=== PATIENT | female | born 1960 | race Caucasian/White ===

== ENCOUNTER 2018-01-24 08:35 | Inpatient (IN) | payer BC ==
[2018-01-24] MEDS ORDERED: Sodium Chloride 0.9% 2.5 ML Syringe FLUSH PRN (08:59)
[2018-01-24] MEDS ORDERED: Sodium Chloride 0.9% 10 ML Syringe FLUSH PRN (08:59)
--- NOTE | 2018-01-24 09:06 | EDM.PDOC ---
ED HPI GENERAL MEDICAL PROBLEM - General Chief Complaint: Neuro Symptoms/Deficits Stated Complaint: LT SIDE OF FACE IS NUMB Time Seen by Provider: 01/24/18 08:50 - History of Present Illness INITIAL COMMENTS - FREE TEXT/NARRATIVE: HISTORY AND PHYSICAL: History of present illness: Patient 57-year-old female with no significant past medical history presents with a concern of paresthesias in her left face primarily in the supraorbital forehead region she states she is a little bit on her frontal and parietal scalp she's here today because it seems a slightly worse than it did earlier in the week is been no motor symptoms no blurry vision no trauma no chest pain shortness of breath or other concern she has intermittently had hypertension is not currently on medication. She denies history of CVA or ME Review of systems: As per history of present illness and below otherwise all systems reviewed and negative. Past medical history: As per history of present illness and as reviewed below otherwise noncontributory. Surgical history: As per history of present illness and as reviewed below otherwise noncontributory. Social history: No reported history of drug or alcohol abuse. Family history: As per history of present illness and as reviewed below otherwise noncontributory. Physical exam: HEENT: Atraumatic, normocephalic, pupils reactive, negative for conjunctival pallor or scleral icterus, mucous membranes moist, throat clear, neck supple, nontender, trachea midline. Lungs: Clear to auscultation, breath sounds equal bilaterally, chest nontender. Heart: S1S2, regular, negative for clicks, rubs, or JVD. Abdomen: Soft, nondistended, nontender. Negative for masses or hepatosplenomegaly. Negative for costovertebral tenderness. Pelvis: Stable nontender. Genitourinary: Deferred. Rectal: Deferred. Extremities: Atraumatic, negative for cords or calf pain. Neurovascular unremarkable. Neuro: Awake, alert, oriented. Cranial nerves II through XII unremarkable. Cerebellum unremarkable. Patient has some decreased sensation to light touch in the left base supraorbitally and on her frontal and parietal scalp. Otherwise motor and sensory are normal Diagnostics: CBC CMP troponin PT/INR chest x-ray EKG CT brain Therapeutics: IV O2 monitor Impression: #1 paresthesia left face etiology to be determined #2 hypertension Definitive disposition and diagnosis as appropriate pending reevaluation and review of above. - Related Data Allergies Allergy/AdvReac Type Severity Reaction Status Date / Time No Known Allergies Allergy Verified 01/24/18 09:16 Home Meds: Home Meds . [No Known Home Meds] 01/24/18 [History] ED ROS GENERAL - Review of Systems Review Of Systems: ROS reveals no pertinent complaints other than HPI. ED EXAM, GENERAL - Physical Exam Exam: See Below (See dictation) Course - Vital Signs Last Recorded V/S: Last Vital Signs Temp 37.1 C 01/24/18 12:10 Pulse 105 H 01/24/18 12:10 Resp 18 01/24/18 10:35 BP 176/115 H 01/24/18 12:10 Pulse Ox 95 01/24/18 12:10 - Orders/Labs/Meds Orders: Active Orders 24 hr Category Date Time Status Cardiac Monitoring [RC] . DIRECTED Care 01/24/18 08:57 Active EKG Documentation Completion [RC] STAT Care 01/24/18 08:58 Active Oxygen Therapy, ED [RC] ASDIRECTED Care 01/24/18 08:57 Active Pulse Oximetry [RC] ASDIRECTED Care 01/24/18 08:58 Active Chest 1V Frontal [CR] Stat Exams 01/24/18 08:59 Taken Head wo Cont [CT] Stat Exams 01/24/18 08:59 Taken Sodium Chloride 0.9% [Normal Saline] 1,000 ml Med 01/24/18 09:00 Active IV STAT Sodium Chloride 0.9% [Saline Flush] Med 01/24/18 08:59 Active 10 ml FLUSH ASDIRECTED PRN Sodium Chloride 0.9% [Saline Flush] Med 01/24/18 08:59 Active 2.5 ml FLUSH ASDIRECTED PRN Saline Lock Insert [OM.PC] Stat Oth 01/24/18 08:57 Ordered Medication Orders Sodium Chloride (Normal Saline) 1,000 mls @ 125 mls/hr IV STAT MEEK Last Admin: 01/24/18 10:09 Dose: 125 mls/hr Sodium Chloride (Saline Flush) 10 ml FLUSH ASDIRECTED PRN PRN Reason: Keep Vein Open Sodium Chloride (Saline Flush) 2.5 ml FLUSH ASDIRECTED PRN PRN Reason: Keep Vein Open Labs: Laboratory Tests 01/24/18 01/24/18 01/24/18 Range/Units 09:20 09:20 09:20 WBC 7.26 (4.0-11.0) K/uL RBC 5.37 (4.30-5.90) M/uL Hgb 15.2 (12.0-16.0) g/dL Hct 43.8 (36.0-46.0) % MCV 81.6 (80.0-98.0) fL MCH 28.3 (27.0-32.0) pg MCHC 34.7 (31.0-37.0) g/dL RDW Std Deviation 38.8 (28.0-62.0) fl RDW Coeff of Teresa 13 (11.0-15.0) % Plt Count 279 (150-400) K/uL MPV 9.90 (7.40-12.00) fL Neut % (Auto) 74.3 (48.0-80.0) % Lymph % (Auto) 17.4 (16.0-40.0) % Rose[place] % (Auto) 5.5 (0.0-15.0) % Eos % (Auto) 2.2 (0.0-7.0) % Baso % (Auto) 0.6 (0.0-1.5) % Neut # (Auto) 5.4 (1.4-5.7) K/uL Lymph # (Auto) 1.3 (0.6-2.4) K/uL Rose[place] # (Auto) 0.4 (0.0-0.8) K/uL Eos # (Auto) 0.2 (0.0-0.7) K/uL Baso # (Auto) 0.0 (0.0-0.1) K/uL Nucleated RBC % 0.0 /100WBC Nucleated RBCs # 0 K/uL INR 0.99 Sodium 138 (136-145) mmol/L Potassium 4.1 (3.5-5.1) mmol/L Chloride 102 (98-107) mmol/L Carbon Dioxide 29.0 (21.0-32.0) mmol/L BUN 15 (7.0-18.0) mg/dL Creatinine 0.9 (0.6-1.0) mg/dL Est Cr Clr Drug Dosing 55.86 mL/min Estimated GFR (MDRD) > 60.0 ml/min Glucose 313 H (74-106) mg/dL POC Glucose (60-110) mg/dL Hemoglobin A1c (4.5-6.2) % Calcium 8.7 (8.5-10.1) mg/dL Total Bilirubin 0.6 (0.2-1.0) mg/dL AST 32 (15-37) IU/L ALT 55 (14-63) IU/L Alkaline Phosphatase 131 H (46-116) U/L Total Protein 7.4 (6.4-8.2) g/dL Albumin 3.8 (3.4-5.0) g/dL Globulin 3.6 H (2.0-3.5) g/dL Albumin/Globulin Ratio 1.1 L (1.3-2.8) 01/24/18 01/24/18 Range/Units 09:40 11:36 WBC (4.0-11.0) K/uL RBC (4.30-5.90) M/uL Hgb (12.0-16.0) g/dL Hct (36.0-46.0) % MCV (80.0-98.0) fL MCH (27.0-32.0) pg MCHC (31.0-37.0) g/dL RDW Std Deviation (28.0-62.0) fl RDW Coeff of Teresa (11.0-15.0) % Plt Count (150-400) K/uL MPV (7.40-12.00) fL Neut % (Auto) (48.0-80.0) % Lymph % (Auto) (16.0-40.0) % Rosebud % (Auto) (0.0-15.0) % Eos % (Auto) (0.0-7.0) % Baso % (Auto) (0.0-1.5) % Neut # (Auto) (1.4-5.7) K/uL Lymph # (Auto) (0.6-2.4) K/uL Rose[place] # (Auto) (0.0-0.8) K/uL Eos # (Auto) (0.0-0.7) K/uL Baso # (Auto) (0.0-0.1) K/uL Nucleated RBC % /100WBC Nucleated RBCs # K/uL INR Sodium (136-145) mmol/L Potassium (3.5-5.1) mmol/L Chloride (98-107) mmol/L Carbon Dioxide (21.0-32.0) mmol/L BUN (7.0-18.0) mg/dL Creatinine (0.6-1.0) mg/dL Est Cr Clr Drug Dosing mL/min Estimated GFR (MDRD) ml/min Glucose (74-106) mg/dL POC Glucose 278 H (60-110) mg/dL Hemoglobin A1c 10.3 H (4.5-6.2) % Calcium (8.5-10.1) mg/dL Total Bilirubin (0.2-1.0) mg/dL AST (15-37) IU/L ALT (14-63) IU/L Alkaline Phosphatase (46-116) U/L Total Protein (6.4-8.2) g/dL Albumin (3.4-5.0) g/dL Globulin (2.0-3.5) g/dL Albumin/Globulin Ratio (1.3-2.8) Meds: Medications Generic Name Dose Route Start Last Admin Trade Name Freq PRN Reason Stop Dose Admin Sodium Chloride 1,000 mls @ 125 mls/hr 01/24/18 09:00 01/24/18 10:09 Normal Saline IV 125 mls/hr STAT MEEK Administration Sodium Chloride 10 ml 01/24/18 08:59 Saline Flush FLUSH ASDIRECTED PRN Keep Vein Open Sodium Chloride 2.5 ml 01/24/18 08:59 Saline Flush FLUSH ASDIRECTED PRN Keep Vein Open Departure - Departure Time of Disposition: 13:15 Disposition: Refer to Observation Condition: Good Clinical Impression: Facial paresthesia, Hyperglycemia, Hypertension - Discharge Information Referrals: PCP,None [Primary Care Provider] - Forms: ED Department Discharge - My Orders Last 24 Hours: My Active Orders 01/24/18 08:57 Cardiac Monitoring [RC] . DIRECTED Oxygen Therapy, ED [RC] ASDIRECTED Saline Lock Insert [OM.PC] Stat 01/24/18 08:58 EKG Documentation Completion [RC] STAT Pulse Oximetry [RC] ASDIRECTED 01/24/18 08:59 Chest 1V Frontal [CR] Stat Head wo Cont [CT] Stat Sodium Chloride 0.9% [Saline Flush] 10 ml FLUSH ASDIRECTED PRN Sodium Chloride 0.9% [Saline Flush] 2.5 ml FLUSH ASDIRECTED PRN 01/24/18 09:00 Sodium Chloride 0.9% [Normal Saline] 1,000 ml IV STAT - Assessment/Plan Last 24 Hours: My Active Orders 01/24/18 08:57 Cardiac Monitoring [RC] . DIRECTED Oxygen Therapy, ED [RC] ASDIRECTED Saline Lock Insert [OM.PC] Stat 01/24/18 08:58 EKG Documentation Completion [RC] STAT Pulse Oximetry [RC] ASDIRECTED 01/24/18 08:59 Chest 1V Frontal [CR] Stat Head wo Cont [CT] Stat Sodium Chloride 0.9% [Saline Flush] 10 ml FLUSH ASDIRECTED PRN Sodium Chloride 0.9% [Saline Flush] 2.5 ml FLUSH ASDIRECTED PRN 01/24/18 09:00 Sodium Chloride 0.9% [Normal Saline] 1,000 ml IV STAT
[2018-01-24] MEDS: Sodium Chloride 0.9% 1,000 ML IV SCH ×2 (10:09→19:14)
[2018-01-24 11:18] LABS: CHLORIDE,CL 102 mmol/L (98-107); SODIUM,NA 138 mmol/L (136-145)
[2018-01-24] MEDS ORDERED: Ibuprofen 400 MG Tab PO PRN (14:07)
[2018-01-24] MEDS ORDERED: Acetaminophen 325 MG Tab PO PRN (14:07)
--- NOTE | 2018-01-24 14:22 | PCM.HP ---
H&P History of Present Illness - General Date of Service: 01/24/18 Admit Problem/Dx: Admission Diagnosis/Problem Admission Diagnosis/Problem Facial paresthesia Source of Information: Patient History Limitations: Reports: No Limitations - History of Present Illness Initial Comments - Free Text/Narative: 57F with no known past history presents today with a CC of left sided facial numbness/tingling thats been ongoing for the past week. As per patient, she tells me that randomly, she started to feel that the side of her face around her left eyebrow began to feel numb and slightly uncomfortable last saturday. Since then, she would get this sensation intermittently until 2 days ago. For the last 2 days, its been a constant numbness or tingling. The issue is not evolving. It does not involve other parts of her body. She has no issues with vision, headache, memory, chewing, smiling, strength. To her knowledge, she has no past history but also hasnt seen a doctor in a few years. ER Course: EKG nsr CBC unremarkable CMP - glucose 313, A1c - 10.8% BP: 209/120 on admission, 176/107 last check IV NS bolus - Related Data Allergies/Adverse Reactions: Allergies Allergy/AdvReac Type Severity Reaction Status Date / Time No Known Allergies Allergy Verified 01/24/18 09:16 Home Medications: Home Meds . [No Known Home Meds] 01/24/18 [History] Past Medical History - Past Health History Medical/Surgical History: Denies Medical/Surgical History Social & Family History - Family History Oncologic: Reports: None - Tobacco Use Smoking Status *Q: Never Smoker Second Hand Smoke Exposure: No - Caffeine Use Caffeine Use: Reports: Coffee - Recreational Drug Use Recreational Drug Use: No H&P Review of Systems - Review of Systems: Review Of Systems: See Below General: Reports: Other (see hpi) HEENT: Reports: No Symptoms Pulmonary: Reports: No Symptoms Cardiovascular: Reports: No Symptoms Gastrointestinal: Reports: No Symptoms Genitourinary: Reports: No Symptoms Musculoskeletal: Reports: No Symptoms Skin: Reports: No Symptoms Psychiatric: Reports: No Symptoms Neurological: Reports: Paresthesia. Denies: Confusion, Dizziness, Headache, Numbness, Pre-Existing Deficit, Seizure, Syncope, Tremors, Trouble Speaking, Difficulty Walking, Weakness, Change in Speech, Gait Disturbance Hematologic/Lymphatic: Reports: No Symptoms Immunologic: Reports: No Symptoms Exam - Exam Exam: See Below - Vital Signs Vital Signs: Last Vital Signs Temp 36.9 C 01/24/18 13:06 Pulse 107 H 01/24/18 13:06 Resp 16 01/24/18 13:06 BP 176/107 H 01/24/18 13:06 Pulse Ox 97 01/24/18 13:06 Weight: 104.326 kg - Exam General: Alert, Oriented, 4 HEENT: PERRLA, Hearing Intact, Mucosa Moist & [place], Nares Patent, Normal Nasal Septum, Posterior Pharynx Clear, Conjunctiva Clear, EOMI, EACs Clear, TMs Clear Neck: Supple, Trachea Midline, 2 Lungs: Clear to Auscultation, Normal Respiratory Effort Cardiovascular: Regular Rate, Regular Rhythm GI/Abdominal Exam: Normal Bowel Sounds, Soft, Non-Tender, No Organomegaly, No Distention, No Abnormal Bruit, No Mass, Pelvis Stable Back Exam: Normal Inspection, Full Range of Motion, NT Extremities: Normal Inspection, Normal Range of Motion, Non-Tender, No Pedal Edema, Normal Capillary Refill Peripheral Pulses: 2+: Posterior Tibial (L), Posterior Tibial (R), Dorsalis Pedis (L), Dorsalis Pedis (R) Skin: Warm, Dry, Intact Neurological: Cranial Nerves Intact, Reflexes Equal Bilateral, Strength Equal Bilateral, Normal Gait, Normal Speech, Normal Tone, Sensation Intact. No: Focal Deficit, Babinski, Hyperreflexia, Hyporeflexia, Clonus, Reflexes Unequal, Abnormal Gait, Babinski Absent Neuro Extensive - Mental Status: Alert, Oriented x3, Normal Mood/Affect, Normal Cognition, Memory Intact Neuro Extensive - Motor, Sensory, Reflexes: CN II-XII Intact, Normal Gait, Normal Reflexes DTR: 2+: Bicep (L), Bicep (R), Patella (L), Patella (R) Psychiatric: Alert, Normal Affect, Normal Mood - Patient Data Lab Results Last 24 hrs: Laboratory Results - last 24 hr 01/24/18 01/24/18 01/24/18 Range/Units 09:20 09:20 09:20 WBC 7.26 (4.0-11.0) K/uL RBC 5.37 (4.30-5.90) M/uL Hgb 15.2 (12.0-16.0) g/dL Hct 43.8 (36.0-46.0) % MCV 81.6 (80.0-98.0) fL MCH 28.3 (27.0-32.0) pg MCHC 34.7 (31.0-37.0) g/dL RDW Std Deviation 38.8 (28.0-62.0) fl RDW Coeff of Teresa 13 (11.0-15.0) % Plt Count 279 (150-400) K/uL MPV 9.90 (7.40-12.00) fL Neut % (Auto) 74.3 (48.0-80.0) % Lymph % (Auto) 17.4 (16.0-40.0) % Beckham % (Auto) 5.5 (0.0-15.0) % Eos % (Auto) 2.2 (0.0-7.0) % Baso % (Auto) 0.6 (0.0-1.5) % Neut # (Auto) 5.4 (1.4-5.7) K/uL Lymph # (Auto) 1.3 (0.6-2.4) K/uL Beckham # (Auto) 0.4 (0.0-0.8) K/uL Eos # (Auto) 0.2 (0.0-0.7) K/uL Baso # (Auto) 0.0 (0.0-0.1) K/uL Nucleated RBC % 0.0 /100WBC Nucleated RBCs # 0 K/uL INR 0.99 Sodium 138 (136-145) mmol/L Potassium 4.1 (3.5-5.1) mmol/L Chloride 102 (98-107) mmol/L Carbon Dioxide 29.0 (21.0-32.0) mmol/L BUN 15 (7.0-18.0) mg/dL Creatinine 0.9 (0.6-1.0) mg/dL Est Cr Clr Drug Dosing 55.86 mL/min Estimated GFR (MDRD) > 60.0 ml/min Glucose 313 H (74-106) mg/dL POC Glucose (60-110) mg/dL Hemoglobin A1c (4.5-6.2) % Calcium 8.7 (8.5-10.1) mg/dL Total Bilirubin 0.6 (0.2-1.0) mg/dL AST 32 (15-37) IU/L ALT 55 (14-63) IU/L Alkaline Phosphatase 131 H (46-116) U/L Total Protein 7.4 (6.4-8.2) g/dL Albumin 3.8 (3.4-5.0) g/dL Globulin 3.6 H (2.0-3.5) g/dL Albumin/Globulin Ratio 1.1 L (1.3-2.8) 01/24/18 01/24/18 Range/Units 09:40 11:36 WBC (4.0-11.0) K/uL RBC (4.30-5.90) M/uL Hgb (12.0-16.0) g/dL Hct (36.0-46.0) % MCV (80.0-98.0) fL MCH (27.0-32.0) pg MCHC (31.0-37.0) g/dL RDW Std Deviation (28.0-62.0) fl RDW Coeff of Teresa (11.0-15.0) % Plt Count (150-400) K/uL MPV (7.40-12.00) fL Neut % (Auto) (48.0-80.0) % Lymph % (Auto) (16.0-40.0) % Beckham % (Auto) (0.0-15.0) % Eos % (Auto) (0.0-7.0) % Baso % (Auto) (0.0-1.5) % Neut # (Auto) (1.4-5.7) K/uL Lymph # (Auto) (0.6-2.4) K/uL Beckham # (Auto) (0.0-0.8) K/uL Eos # (Auto) (0.0-0.7) K/uL Baso # (Auto) (0.0-0.1) K/uL Nucleated RBC % /100WBC Nucleated RBCs # K/uL INR Sodium (136-145) mmol/L Potassium (3.5-5.1) mmol/L Chloride (98-107) mmol/L Carbon Dioxide (21.0-32.0) mmol/L BUN (7.0-18.0) mg/dL Creatinine (0.6-1.0) mg/dL Est Cr Clr Drug Dosing mL/min Estimated GFR (MDRD) ml/min Glucose (74-106) mg/dL POC Glucose 278 H (60-110) mg/dL Hemoglobin A1c 10.3 H (4.5-6.2) % Calcium (8.5-10.1) mg/dL Total Bilirubin (0.2-1.0) mg/dL AST (15-37) IU/L ALT (14-63) IU/L Alkaline Phosphatase (46-116) U/L Total Protein (6.4-8.2) g/dL Albumin (3.4-5.0) g/dL Globulin (2.0-3.5) g/dL Albumin/Globulin Ratio (1.3-2.8) Result Diagrams: 01/24/18 09:20 01/24/18 09:20 Problem List Initiated/Reviewed/Updated: Yes Orders Last 24hrs: Active Orders 24 hr Category Date Time Status Patient Status [ADT] Stat ADT 01/24/18 13:18 Active Cardiac Monitoring [RC] . DIRECTED Care 01/24/18 08:57 Active EKG Documentation Completion [RC] STAT Care 01/24/18 08:58 Active Oxygen Therapy [RC] PRN Care 01/24/18 14:07 Ordered Oxygen Therapy, ED [RC] ASDIRECTED Care 01/24/18 08:57 Active Pulse Oximetry [RC] ASDIRECTED Care 01/24/18 08:58 Active Up ad Ara [RC] ASDIRECTED Care 01/24/18 14:07 Ordered VTE/DVT Education [RC] PER UNIT ROUTINE Care 01/24/18 14:07 Ordered Vital Signs [RC] Q4H Care 01/24/18 14:07 Ordered Consult to Diabetic Nurse Specialist [CONS] Routine Cons 01/24/18 14:07 Ordered [employer] Diet [DIET] Diet 01/24/18 Dinner Ordered Chest 1V Frontal [CR] Stat Exams 01/24/18 08:59 Taken Head wo Cont [CT] Stat Exams 01/24/18 08:59 Taken BASIC METABOLIC PANEL,BMP [CHEM] AM Lab 01/25/18 05:11 Ordered LIPID PANEL [CHEM] AM Lab 01/25/18 05:11 Ordered LIPID PANEL [CHEM] Routine Lab 01/24/18 14:07 Stop Req Acetaminophen [Tylenol] Med 01/24/18 14:07 Ordered 650 mg PO Q4H PRN Ibuprofen [Motrin] Med 01/24/18 14:07 Ordered 400 mg PO Q6H PRN Insulin Aspart [NovoLOG] Med 01/24/18 17:00 Ordered See Protocol SUBCUT TIDAC Insulin Glarg,Human.Rec.Analog [LantUS Solostar] Med 01/24/18 21:00 Ordered 10 units SUBCUT BEDTIME Sodium Chloride 0.9% [Normal Saline] 1,000 ml Med 01/24/18 09:00 Active IV STAT Sodium Chloride 0.9% [Saline Flush] Med 01/24/18 08:59 Active 10 ml FLUSH ASDIRECTED PRN Sodium Chloride 0.9% [Saline Flush] Med 01/24/18 08:59 Active 2.5 ml FLUSH ASDIRECTED PRN Saline Lock Insert [OM.PC] Stat Oth 01/24/18 08:57 Ordered Sequential Compression Device [OM.PC] Per Unit Routine Oth 01/24/18 14:09 Ordered Resuscitation Status Routine Resus Stat 01/24/18 14:07 Ordered Medication Orders Acetaminophen (Tylenol) 650 mg PO Q4H PRN PRN Reason: Pain (Mild 1-3)/fever Sodium Chloride (Normal Saline) 1,000 mls @ 125 mls/hr IV STAT MEEK Last Admin: 01/24/18 10:09 Dose: 125 mls/hr Ibuprofen (Motrin) 400 mg PO Q6H PRN PRN Reason: Pain (mild 1-3) Insulin Aspart (Novolog) 0 unit SUBCUT TIDAC MEEK; Protocol Insulin Glargine (Lantus Solostar) 10 units SUBCUT BEDTIME MEEK Sodium Chloride (Saline Flush) 10 ml FLUSH ASDIRECTED PRN PRN Reason: Keep Vein Open Sodium Chloride (Saline Flush) 2.5 ml FLUSH ASDIRECTED PRN PRN Reason: Keep Vein Open Assessment/Plan Comment:: Assessment: #1. Facial parasthesia #2. Elevated blood pressure #3. Hyperglycemia Plan: #1. Admit to floor for observation. Full code. Cardiac telemetry. Vital signs per floor. SCD for DVT prophylaxis #2. Diabetic diet #3. Will start lantus 10 units at bedtime given hyperglycemia, a1c at 10.8%. low dose sliding scale #4. lipid panel, BMP tomorrow AM. will have to start a statin as well. #5. consult diabetic education for new onset diabetes #6. Discharge home tomorrow with PCP appointment if symptoms are stable/ resolve.
[2018-01-24] MEDS ORDERED: Labetalol 20 MG/4 ML Syringe IVPUSH PRN (14:38)
--- NOTE | 2018-01-24 15:42 | CR ---
EXAM DATE: 01/24/18 PATIENT'S AGE: 57 Patient: KEN LAWRENCE Facility: [place], [place] Site . Site : [id number] Study: XRay Chest [id number]/8/[id number] 10:30:27 AM Ordering Physician: Anderson Silva Final Report: HISTORY: Pain/shortness of breath. TECHNIQUE: Portable frontal view of the chest. COMPARISON: None. FINDINGS: No airspace consolidation. No pleural effusion or pneumothorax. Pulmonary vasculature is within normal limits. Cardiomediastinal silhouette is within normal limits. IMPRESSION: No acute findings. Dictated by Shawn Jiang MD @ Jan 24 2018 11:48AM (Electronic Signature) Report Signed by Proxy. EZEKIEL
--- NOTE | 2018-01-24 15:45 | CT ---
EXAM DATE: 01/24/18 PATIENT'S AGE: 57 Patient: KEN LAWRENCE Facility: [place], [place] Site . Site : 1960 Study: CT Head [id number]/[id number] 10:48:41 AM Ordering Physician: Anderson Silva Final Report: HISTORY: Facial numbness. TECHNIQUE: CT brain without contrast. COMPARISON: None. FINDINGS: No acute intracranial hemorrhage. No extra-axial collection. No mass effect or midline shift. Brain parenchyma is within normal limits for age. Ventricular system is normal in caliber and morphology. Cisterns are patent. Calvarium is intact. Polypoid mucosal thickening along the floor of the left maxillary sinus. Visualized paranasal sinuses and mastoid air cells are otherwise clear. Hypoplastic left frontal sinus. IMPRESSION: No acute intracranial abnormality. Please note that all CT scans at this facility use dose modulation, iterative reconstruction, and/or weight-based dosing when appropriate to reduce radiation dose to as low as reasonably achievable. Dictated by Shawn Jiang MD @ Jan 24 2018 11:50AM (Electronic Signature) Report Signed by Proxy. [facility]
[2018-01-24] MEDS ORDERED: Sodium Chloride 0.9% 1,000 ML IV SCH (17:15)
[2018-01-24] MEDS ORDERED: Labetalol 20 MG/4 ML Syringe IVPUSH ONE (17:41)
[2018-01-24] MEDS: Insulin Aspart 100 Units/ML 3 ML Pen SUBCUT SCH (18:07)
[2018-01-24] MEDS ORDERED: Insulin Glargine,Human Rec. Analog 100 Units/ML 3 ML Pen SUBCUT SCH (21:00)
[2018-01-24] MEDS: atorvaSTATin 40 MG Tab PO SCH (21:11)
[2018-01-25] MEDS: Sodium Chloride 0.9% 1,000 ML IV SCH (03:44)
[2018-01-25 06:33] LABS: CHLORIDE,CL 106 mmol/L (98-107); SODIUM,NA 140 mmol/L (136-145)
[2018-01-25] MEDS: Insulin Aspart 100 Units/ML 3 ML Pen SUBCUT SCH ×3 (06:52→16:48)
--- NOTE | 2018-01-25 09:53 | PCM.PN ---
- General Info Date of Service: 01/25/18 - Review of Systems Systems Review Comment:: patient reports facial numbness improving - Patient Data Vitals - Most Recent: Last Vital Signs Temp 36.6 C 01/25/18 04:00 Pulse 81 01/25/18 04:00 Resp 18 01/25/18 04:00 BP 150/96 H 01/25/18 04:00 Pulse Ox 97 01/25/18 04:00 Weight - Most Recent: 104.326 kg I&O - Last 24 Hours: Intake & Output 01/24/18 01/25/18 01/25/18 22:59 06:59 14:59 Intake Total 1000 3500 Output Total 700 2880 Balance 300 620 Lab Results Last 24 Hours: Laboratory Results - last 24 hr 01/24/18 01/24/18 01/24/18 Range/Units 09:20 09:20 09:20 WBC 7.26 (4.0-11.0) K/uL RBC 5.37 (4.30-5.90) M/uL Hgb 15.2 (12.0-16.0) g/dL Hct 43.8 (36.0-46.0) % MCV 81.6 (80.0-98.0) fL MCH 28.3 (27.0-32.0) pg MCHC 34.7 (31.0-37.0) g/dL RDW Std Deviation 38.8 (28.0-62.0) fl RDW Coeff of Teresa 13 (11.0-15.0) % Plt Count 279 (150-400) K/uL MPV 9.90 (7.40-12.00) fL Neut % (Auto) 74.3 (48.0-80.0) % Lymph % (Auto) 17.4 (16.0-40.0) % [place] % (Auto) 5.5 (0.0-15.0) % Eos % (Auto) 2.2 (0.0-7.0) % Baso % (Auto) 0.6 (0.0-1.5) % Neut # (Auto) 5.4 (1.4-5.7) K/uL Lymph # (Auto) 1.3 (0.6-2.4) K/uL [place] # (Auto) 0.4 (0.0-0.8) K/uL Eos # (Auto) 0.2 (0.0-0.7) K/uL Baso # (Auto) 0.0 (0.0-0.1) K/uL Nucleated RBC % 0.0 /100WBC Nucleated RBCs # 0 K/uL INR 0.99 Sodium 138 (136-145) mmol/L Potassium 4.1 (3.5-5.1) mmol/L Chloride 102 (98-107) mmol/L Carbon Dioxide 29.0 (21.0-32.0) mmol/L BUN 15 (7.0-18.0) mg/dL Creatinine 0.9 (0.6-1.0) mg/dL Est Cr Clr Drug Dosing 55.86 mL/min Estimated GFR (MDRD) > 60.0 ml/min Glucose 313 H (74-106) mg/dL POC Glucose (60-110) mg/dL Hemoglobin A1c (4.5-6.2) % Calcium 8.7 (8.5-10.1) mg/dL Total Bilirubin 0.6 (0.2-1.0) mg/dL AST 32 (15-37) IU/L ALT 55 (14-63) IU/L Alkaline Phosphatase 131 H (46-116) U/L Total Protein 7.4 (6.4-8.2) g/dL Albumin 3.8 (3.4-5.0) g/dL Globulin 3.6 H (2.0-3.5) g/dL Albumin/Globulin Ratio 1.1 L (1.3-2.8) Triglycerides (0-200) mg/dL Cholesterol (50-200) mg/dL LDL Cholesterol, Calc (60-180) mg/dL VLDL Cholesterol (5-55) mg/dL HDL Cholesterol (40-60) mg/dL Cholesterol/HDL Ratio (3.3-6.0) 01/24/18 01/24/18 01/24/18 Range/Units 09:40 11:36 20:29 WBC (4.0-11.0) K/uL RBC (4.30-5.90) M/uL Hgb (12.0-16.0) g/dL Hct (36.0-46.0) % MCV (80.0-98.0) fL MCH (27.0-32.0) pg MCHC (31.0-37.0) g/dL RDW Std Deviation (28.0-62.0) fl RDW Coeff of Teresa (11.0-15.0) % Plt Count (150-400) K/uL MPV (7.40-12.00) fL Neut % (Auto) (48.0-80.0) % Lymph % (Auto) (16.0-40.0) % [place] % (Auto) (0.0-15.0) % Eos % (Auto) (0.0-7.0) % Baso % (Auto) (0.0-1.5) % Neut # (Auto) (1.4-5.7) K/uL Lymph # (Auto) (0.6-2.4) K/uL [place] # (Auto) (0.0-0.8) K/uL Eos # (Auto) (0.0-0.7) K/uL Baso # (Auto) (0.0-0.1) K/uL Nucleated RBC % /100WBC Nucleated RBCs # K/uL INR Sodium (136-145) mmol/L Potassium (3.5-5.1) mmol/L Chloride (98-107) mmol/L Carbon Dioxide (21.0-32.0) mmol/L BUN (7.0-18.0) mg/dL Creatinine (0.6-1.0) mg/dL Est Cr Clr Drug Dosing mL/min Estimated GFR (MDRD) ml/min Glucose (74-106) mg/dL POC Glucose 278 H 239 H (60-110) mg/dL Hemoglobin A1c 10.3 H (4.5-6.2) % Calcium (8.5-10.1) mg/dL Total Bilirubin (0.2-1.0) mg/dL AST (15-37) IU/L ALT (14-63) IU/L Alkaline Phosphatase (46-116) U/L Total Protein (6.4-8.2) g/dL Albumin (3.4-5.0) g/dL Globulin (2.0-3.5) g/dL Albumin/Globulin Ratio (1.3-2.8) Triglycerides (0-200) mg/dL Cholesterol (50-200) mg/dL LDL Cholesterol, Calc (60-180) mg/dL VLDL Cholesterol (5-55) mg/dL HDL Cholesterol (40-60) mg/dL Cholesterol/HDL Ratio (3.3-6.0) 01/25/18 01/25/18 Range/Units 05:51 06:12 WBC (4.0-11.0) K/uL RBC (4.30-5.90) M/uL Hgb (12.0-16.0) g/dL Hct (36.0-46.0) % MCV (80.0-98.0) fL MCH (27.0-32.0) pg MCHC (31.0-37.0) g/dL RDW Std Deviation (28.0-62.0) fl RDW Coeff of Teresa (11.0-15.0) % Plt Count (150-400) K/uL MPV (7.40-12.00) fL Neut % (Auto) (48.0-80.0) % Lymph % (Auto) (16.0-40.0) % [place] % (Auto) (0.0-15.0) % Eos % (Auto) (0.0-7.0) % Baso % (Auto) (0.0-1.5) % Neut # (Auto) (1.4-5.7) K/uL Lymph # (Auto) (0.6-2.4) K/uL [place] # (Auto) (0.0-0.8) K/uL Eos # (Auto) (0.0-0.7) K/uL Baso # (Auto) (0.0-0.1) K/uL Nucleated RBC % /100WBC Nucleated RBCs # K/uL INR Sodium 140 (136-145) mmol/L Potassium 3.9 (3.5-5.1) mmol/L Chloride 106 (98-107) mmol/L Carbon Dioxide 25.0 (21.0-32.0) mmol/L BUN 13 (7.0-18.0) mg/dL Creatinine 0.9 (0.6-1.0) mg/dL Est Cr Clr Drug Dosing 55.86 mL/min Estimated GFR (MDRD) > 60.0 ml/min Glucose 251 H (74-106) mg/dL POC Glucose 214 H (60-110) mg/dL Hemoglobin A1c (4.5-6.2) % Calcium 8.5 (8.5-10.1) mg/dL Total Bilirubin (0.2-1.0) mg/dL AST (15-37) IU/L ALT (14-63) IU/L Alkaline Phosphatase (46-116) U/L Total Protein (6.4-8.2) g/dL Albumin (3.4-5.0) g/dL Globulin (2.0-3.5) g/dL Albumin/Globulin Ratio (1.3-2.8) Triglycerides 117 (0-200) mg/dL Cholesterol 188 (50-200) mg/dL LDL Cholesterol, Calc 136 (60-180) mg/dL VLDL Cholesterol 23 (5-55) mg/dL HDL Cholesterol 29 L (40-60) mg/dL Cholesterol/HDL Ratio 6.5 H (3.3-6.0) Med Orders - Current: Current Medications Acetaminophen (Tylenol) 650 mg PO Q4H PRN PRN Reason: Pain (Mild 1-3)/fever Atorvastatin Calcium (Lipitor) 40 mg PO BEDTIME [facility] Last Admin: 01/24/18 21:11 Dose: 40 mg Sodium Chloride (Normal Saline) 1,000 mls @ 125 mls/hr IV ASDIRECTED [facility] Last Admin: 01/25/18 03:44 Dose: 125 mls/hr Ibuprofen (Motrin) 400 mg PO Q6H PRN PRN Reason: Pain (mild 1-3) Insulin Aspart (Novolog) 0 unit SUBCUT TIDAC [facility]; Protocol Last Admin: 01/25/18 06:52 Dose: 2 unit Labetalol HCl (Normodyne) 10 mg IVPUSH ONETIME PRN; Protocol PRN Reason: Hypertension Sodium Chloride (Saline Flush) 10 ml FLUSH ASDIRECTED PRN PRN Reason: Keep Vein Open Sodium Chloride (Saline Flush) 2.5 ml FLUSH ASDIRECTED PRN PRN Reason: Keep Vein Open Discontinued Medications Sodium Chloride (Normal Saline) 1,000 mls @ 125 mls/hr IV STAT [facility] Last Admin: 01/25/18 03:44 Dose: 125 mls/hr Insulin Glargine (Lantus Solostar) 10 units SUBCUT BEDTIME [facility] Last Admin: 01/24/18 21:08 Dose: 10 units Labetalol HCl (Normodyne) 10 mg IVPUSH ONETIME ONE; Protocol Stop: 01/24/18 17:42 Last Admin: 01/24/18 18:08 Dose: 10 mg - Exam General: Alert, Oriented Lungs: Clear to Auscultation, Normal Respiratory Effort Cardiovascular: Regular Rate, Regular Rhythm GI/Abdominal Exam: Normal Bowel Sounds, Soft, Non-Tender Skin: Warm, Dry, Intact Neurological: No New Focal Deficit, Strength Equal Bilateral, Sensation Intact - Problem List Review Problem List Initiated/Reviewed/Updated: Yes - My Orders Last 24 Hours: My Active Orders 01/24/18 14:08 Telemetry Monitoring [Cardiac Monitoring] [RC] . DIRECTED 01/25/18 21:00 Insulin Glarg,Human.Rec.Analog [LantUS Solostar] 12 units SUBCUT BEDTIME - Plan Plan:: 57 yo female admitted with left upper facial paresthesia, newly diagnosed diabetic and poorly controlled hypertension. Facial numbness: CT head negative, symptoms improving DM: on diabetic diet, educated on hyper/hypoglycemia and insulin usage today HTN: continue to monitor, receiving labetolol prn
[2018-01-25] MEDS: Labetalol 20 MG/4 ML Syringe IVPUSH PRN (12:53)
[2018-01-25] MEDS: atorvaSTATin 40 MG Tab PO SCH (21:08)
[2018-01-25] MEDS: Insulin Glargine,Human Rec. Analog 100 Units/ML 3 ML Pen SUBCUT SCH (21:08)
[2018-01-26 06:29] LABS: CHLORIDE,CL 105 mmol/L (98-107); SODIUM,NA 140 mmol/L (136-145)
[2018-01-26] MEDS: Insulin Aspart 100 Units/ML 3 ML Pen SUBCUT SCH ×3 (06:41→17:16)
[2018-01-26] MEDS: Labetalol 20 MG/4 ML Syringe IVPUSH PRN (08:54)
[2018-01-26] MEDS: Lisinopril/Hydrochlorothiazide 10-12.5 MG Tab PO SCH (10:38)
--- NOTE | 2018-01-26 11:02 | PCM.PN ---
- General Info Date of Service: 01/26/18 Subjective Update: States that her facial numbness is better. BP continues to be elevated,but asymptomatic. Denies headache, blurry vision, chest pain. - Review of Systems General: Reports: Other (see hpi) - Patient Data Vitals - Most Recent: Last Vital Signs Temp 35.4 C 01/26/18 08:00 Pulse 107 H 01/26/18 08:00 Resp 18 01/26/18 08:00 BP 190/98 H 01/26/18 10:41 Pulse Ox 96 01/26/18 08:00 Weight - Most Recent: 104.326 kg I&O - Last 24 Hours: Intake & Output 01/25/18 01/26/18 01/26/18 22:59 06:59 14:59 Intake Total 2140 1999 Output Total 3670 2850 Balance -1530 -850 Lab Results Last 24 Hours: Laboratory Results - last 24 hr 01/25/18 01/25/18 01/25/18 Range/Units 11:34 16:40 21:07 WBC (4.0-11.0) K/uL RBC (4.30-5.90) M/uL Hgb (12.0-16.0) g/dL Hct (36.0-46.0) % MCV (80.0-98.0) fL MCH (27.0-32.0) pg MCHC (31.0-37.0) g/dL RDW Std Deviation (28.0-62.0) fl RDW Coeff of Teresa (11.0-15.0) % Plt Count (150-400) K/uL MPV (7.40-12.00) fL Neut % (Auto) (48.0-80.0) % Lymph % (Auto) (16.0-40.0) % [place] % (Auto) (0.0-15.0) % Eos % (Auto) (0.0-7.0) % Baso % (Auto) (0.0-1.5) % Neut # (Auto) (1.4-5.7) K/uL Lymph # (Auto) (0.6-2.4) K/uL [place] # (Auto) (0.0-0.8) K/uL Eos # (Auto) (0.0-0.7) K/uL Baso # (Auto) (0.0-0.1) K/uL Nucleated RBC % /100WBC Nucleated RBCs # K/uL Sodium (136-145) mmol/L Potassium (3.5-5.1) mmol/L Chloride (98-107) mmol/L Carbon Dioxide (21.0-32.0) mmol/L BUN (7.0-18.0) mg/dL Creatinine (0.6-1.0) mg/dL Est Cr Clr Drug Dosing mL/min Estimated GFR (MDRD) ml/min Glucose (74-106) mg/dL POC Glucose 237 H 196 H 214 H (60-110) mg/dL Calcium (8.5-10.1) mg/dL 01/26/18 01/26/18 Range/Units 05:43 05:43 WBC 8.56 (4.0-11.0) K/uL RBC 4.89 (4.30-5.90) M/uL Hgb 13.7 (12.0-16.0) g/dL Hct 40.6 (36.0-46.0) % MCV 83.0 (80.0-98.0) fL MCH 28.0 (27.0-32.0) pg MCHC 33.7 (31.0-37.0) g/dL RDW Std Deviation 40.0 (28.0-62.0) fl RDW Coeff of Teresa 13 (11.0-15.0) % Plt Count 271 (150-400) K/uL MPV 9.80 (7.40-12.00) fL Neut % (Auto) 63.3 (48.0-80.0) % Lymph % (Auto) 25.0 (16.0-40.0) % [place] % (Auto) 7.6 (0.0-15.0) % Eos % (Auto) 3.6 (0.0-7.0) % Baso % (Auto) 0.5 (0.0-1.5) % Neut # (Auto) 5.4 (1.4-5.7) K/uL Lymph # (Auto) 2.1 (0.6-2.4) K/uL [place] # (Auto) 0.7 (0.0-0.8) K/uL Eos # (Auto) 0.3 (0.0-0.7) K/uL Baso # (Auto) 0.0 (0.0-0.1) K/uL Nucleated RBC % 0.0 /100WBC Nucleated RBCs # 0 K/uL Sodium 140 (136-145) mmol/L Potassium 3.8 (3.5-5.1) mmol/L Chloride 105 (98-107) mmol/L Carbon Dioxide 29.1 (21.0-32.0) mmol/L BUN 14 (7.0-18.0) mg/dL Creatinine 0.9 (0.6-1.0) mg/dL Est Cr Clr Drug Dosing 55.86 mL/min Estimated GFR (MDRD) > 60.0 ml/min Glucose 226 H (74-106) mg/dL POC Glucose (60-110) mg/dL Calcium 8.7 (8.5-10.1) mg/dL Med Orders - Current: Current Medications Acetaminophen (Tylenol) 650 mg PO Q4H PRN PRN Reason: Pain (Mild 1-3)/fever Atorvastatin Calcium (Lipitor) 40 mg PO BEDTIME [facility] Last Admin: 01/25/18 21:08 Dose: 40 mg Lisinopril/HCTZ (Lisinopril-Hctz 10-12.5 Mg) 1 tab PO DAILY [facility] Last Admin: 01/26/18 10:38 Dose: 1 tab Sodium Chloride (Normal Saline) 1,000 mls @ 125 mls/hr IV ASDIRECTED [facility] Last Admin: 01/25/18 03:44 Dose: 125 mls/hr Ibuprofen (Motrin) 400 mg PO Q6H PRN PRN Reason: Pain (mild 1-3) Insulin Aspart (Novolog) 0 unit SUBCUT TIDAC [facility]; Protocol Last Admin: 01/26/18 06:41 Dose: 1 unit Insulin Glargine (Lantus Solostar) 12 units SUBCUT BEDTIME [facility] Last Admin: 01/25/18 21:08 Dose: 12 units Labetalol HCl (Normodyne) 10 mg IVPUSH Q4H PRN; Protocol PRN Reason: for SBP above 200 Last Admin: 01/26/18 08:54 Dose: 10 mg Sodium Chloride (Saline Flush) 10 ml FLUSH ASDIRECTED PRN PRN Reason: Keep Vein Open Sodium Chloride (Saline Flush) 2.5 ml FLUSH ASDIRECTED PRN PRN Reason: Keep Vein Open Discontinued Medications Sodium Chloride (Normal Saline) 1,000 mls @ 125 mls/hr IV STAT [facility] Last Admin: 01/25/18 03:44 Dose: 125 mls/hr Insulin Glargine (Lantus Solostar) 10 units SUBCUT BEDTIME [facility] Last Admin: 01/24/18 21:08 Dose: 10 units Labetalol HCl (Normodyne) 10 mg IVPUSH ONETIME PRN; Protocol PRN Reason: Hypertension Labetalol HCl (Normodyne) 10 mg IVPUSH ONETIME ONE; Protocol Stop: 01/24/18 17:42 Last Admin: 01/24/18 18:08 Dose: 10 mg - Exam General: Alert, Oriented HEENT: Pupils Equal, Pupils Reactive, EOMI, Mucous Membr. Moist/[place] Neck: Supple Lungs: Clear to Auscultation, Normal Respiratory Effort Cardiovascular: Regular Rate, Regular Rhythm GI/Abdominal Exam: Normal Bowel Sounds, Soft, Non-Tender, No Organomegaly, No Distention, No Abnormal Bruit, No Mass, Pelvis Stable Extremities: Normal Inspection, Normal Range of Motion, Non-Tender, No Pedal Edema, Normal Capillary Refill Peripheral Pulses: 2+: Dorsalis Pedis (L), Dorsalis Pedis (R) Neurological: Normal Speech, Normal Tone, Strength Equal Bilateral, Sensation Intact, Cranial Nerves Intact Psy/Mental Status: Alert, Normal Affect, Normal Mood - Problem List Review Problem List Initiated/Reviewed/Updated: Yes - My Orders Last 24 Hours: My Active Orders 01/26/18 09:30 Lisinopril/Hydrochlorothiazide [Lisinopril-HCTZ 10-12.5 MG] 1 tab PO DAILY - Plan Plan:: 57 yo female admitted with left upper facial paresthesia, newly diagnosed diabetic and poorly controlled hypertension. Facial numbness: CT head negative, symptoms improving DM: on diabetic diet, educated on hyper/hypoglycemia and insulin usage today HTN: continue to monitor, receiving labetolol prn Assessment/Plan: #1. HTN - Start Lisinopril/HCTZ 10/12.5mg daily. Will send her home on this. PRN labetalol for SBP >200. #2. Facial numbness - CT head negative. Improving. Will get MRI either tomorrow morning or as an outpatient. Given distribution, differential includes trigeminal neuralgia #3. T2DM - Lantus + insulin sliding scale. Will go home on this. Will also go home on atorvastatin 40mg daily given ASCVD risk.
[2018-01-26] MEDS: atorvaSTATin 40 MG Tab PO SCH (21:11)
[2018-01-26] MEDS: Insulin Glargine,Human Rec. Analog 100 Units/ML 3 ML Pen SUBCUT SCH (21:13)
[2018-01-27] MEDS: Insulin Aspart 100 Units/ML 3 ML Pen SUBCUT SCH ×2 (06:34→14:32)
[2018-01-27] MEDS: Lisinopril/Hydrochlorothiazide 10-12.5 MG Tab PO SCH (08:46)
[2018-01-27] MEDS ORDERED: Gadobenate Dimeglumine 529 MG/ML 20 ML SDV IVPUSH STA (09:50)
--- NOTE | 2018-01-27 10:46 | MR ---
EXAMINATION: MRI of the brain with and without contrast. TECHNIQUE: Multiplanar and multisequence imaging of the brain without and following 20 cc of Multiha nce contrast. HISTORY: Facial paresthesia. FINDINGS: Cerebral hemispheres and the deep nuclei are without hemorrhage, mass, edema, enhancement or atrophy. There are a few tiny periventricular and subcortical white matter FLAIR intensities noted. No abnor mal diffusion restriction. No extraaxial collections or hemorrhage. The ventricular system is of normal size and configuration w ithout hydrocephalus. The brainstem and cerebellum are without hemorrhage, mass, edema, gliosis, enha ncement or atrophy. Carotid basilar artery flow voids are intact. The venous sinuses are patent. Otomastoid airspaces ar e clear. No internal auditory canal or cerebellopontine angle masses or enhancement. Paranasal sinu ses are clear. Optic nerve sheaths are minimally prominent. The sella is mostly empty. No meningeal enhancement. No evidence of meningitis or meningoencephalitis. Craniocervical junction is unremarkable. No siderosis or evidence of vascular malformation. The mini varium is intact. IMPRESSION: 1. No acute intracranial findings. 2. Mild small vessel ischemic changes.
--- NOTE | 2018-01-27 16:50 | PCM.DCSUM1 ---
Discharge Summary - Hospital Course Free Text/Narrative:: Admission date: 01/24/2018 Discharge date: 01/27/2018 Admission diagnosis: #1. Left sided facial paresthesia #2. Elevated BP #3. Hyperglycemia Discharge Diagnosis: #1. Left sided facial paresthesia - improved #2. HTN #3. T2DM Hospital Course: 57F with a history of HTN with noncompliance to medicine that presented to the ER for the above mentioned complaint that was ongoing for a week prior to presentation. She was admitted for neurological work up, management of HTN and hyperglycemia. CT head was negative, MRI of brain also was unremarkable. Her blood pressure was significantly high for most of her stay, at times being >200 systolic. Aside from the facial paresthesia, she was asymptomatic. She was dc home on Lisinopril/HCTZ along with insulin management for T2DM. She met with diabetic education prior to DC. She was also started on a statin given ASCVD risk. I think she would benefit from more diabetic education and at least be offered oral medication if she desires. She seemed reluctant to multiple injections of insulin daily and I fear she may be non-compliant given her lengthy history of never seeing a doctor despite knowing of significant HTN. She is to f/u with pcp. - Discharge Data Discharge Date: 01/27/18 Discharge Disposition: Home, Self-Care 01 Condition: Good - Patient Summary/Data Consults: Consultations 01/24/18 14:07 Consult to Diabetic Nurse Specialist [CONS] Routine 01/27/18 12:02 Consult to Diabetic Nurse Specialist [CONS] Routine - Patient Instructions Diet: Diabetic Diet Activity: As Tolerated Driving: May Drive Today Showering/Bathing: May Shower Notify Provider of: Fever, Increased Pain, Swelling and Redness, Drainage, Nausea and/or Vomiting - Discharge Plan Prescriptions/Med Rec: atorvaSTATin [Lipitor] 40 mg PO BEDTIME 30 Days #30 tablet Blood Sugar Diagnostic [Test Strips] 1 each [facility] DAILY 30 Days #1 box Insulin Glarg,Human.Rec.Analog [Lantus Solostar] 12 units SUBCUT BEDTIME 30 Days #1 each Lisinopril/Hydrochlorothiazide [Lisinopril-HCTZ 10-12.5 MG] 1 tab PO DAILY 30 Days #30 tablet Home Medications: Home Meds Blood Sugar Diagnostic [Test Strips] 1 each MC DAILY 30 Days #1 box 01/27/18 [Rx ] Insulin Glarg,Human.Rec.Analog [Lantus Solostar] 12 units SUBCUT BEDTIME 30 Days #1 each 01/27/18 [Rx] Lisinopril/Hydrochlorothiazide [Lisinopril-HCTZ 10-12.5 MG] 1 tab PO DAILY 30 Days #30 tablet 01/27/18 [Rx] atorvaSTATin [Lipitor] 40 mg PO BEDTIME 30 Days #30 tablet 01/27/18 [Rx] Patient Handouts: Hydrochlorothiazide, HCTZ; Lisinopril tablets, Type 2 Diabetes Mellitus, Self Care, Adult, [id number], Hypertension, [id number], Atorvastatin tablets, Insulin Glargine injection Referrals: [facility] [Outside] Shawn Ch MD [Physician] - 01/30/18 10:15 am - Discharge Summary/Plan Comment Discharge Summary/Plan Comment: Admission date: 01/24/2018 Discharge date: 01/27/2018 Admission diagnosis: #1. Left sided facial paresthesia #2. Elevated BP #3. Hyperglycemia Discharge Diagnosis: #1. Left sided facial paresthesia - improved #2. HTN #3. T2DM Hospital Course: 57F with a history of HTN with noncompliance to medicine that presented to the ER for the above mentioned complaint that was ongoing for a week prior to presentation. She was admitted for neurological work up, management of HTN and hyperglycemia. CT head was negative, MRI of brain also was unremarkable. Her blood pressure was significantly high for most of her stay, at times being >200 systolic. Aside from the facial paresthesia, she was asymptomatic. She was dc home on Lisinopril/HCTZ along with insulin management for T2DM. She met with diabetic education prior to DC. She was also started on a statin given ASCVD risk. I think she would benefit from more diabetic education and at least be offered oral medication if she desires. She seemed reluctant to multiple injections of insulin daily and I fear she may be non-compliant given her lengthy history of never seeing a doctor despite knowing of significant HTN. She is to f/u with pcp. - Patient Data Vitals - Most Recent: Last Vital Signs Temp 36.8 C 01/27/18 12:00 Pulse 104 H 01/27/18 12:00 Resp 16 01/27/18 12:00 BP 149/96 H 01/27/18 12:00 Pulse Ox 96 01/27/18 12:00 Weight - Most Recent: 104.326 kg I&O - Last 24 hours: Intake & Output 01/27/18 01/27/18 01/27/18 06:59 14:59 22:59 Intake Total 1500 Output Total 2550 Balance -1050 Lab Results - Last 24 hrs: Laboratory Results - last 24 hr 01/26/18 01/27/18 Range/Units 21:08 05:17 Sodium 138 (136-145) mmol/L Potassium 4.2 (3.5-5.1) mmol/L Chloride 102 (98-107) mmol/L Carbon Dioxide 28.7 (21.0-32.0) mmol/L BUN 20 H (7.0-18.0) mg/dL Creatinine 1.1 H (0.6-1.0) mg/dL Est Cr Clr Drug Dosing 45.70 mL/min Estimated GFR (MDRD) 51.6 ml/min Glucose 236 H (74-106) mg/dL POC Glucose 184 H (60-110) mg/dL Calcium 9.1 (8.5-10.1) mg/dL Med Orders - Current: Current Medications Discontinued Medications Acetaminophen (Tylenol) 650 mg PO Q4H PRN PRN Reason: Pain (Mild 1-3)/fever Atorvastatin Calcium (Lipitor) 40 mg PO BEDTIME [facility] Last Admin: 01/26/18 21:11 Dose: 40 mg Gadobenate Dimeglumine (Multihance) 20 ml IVPUSH ONETIME STA Stop: 01/27/18 09:51 Last Admin: 01/27/18 09:51 Dose: 20 ml Lisinopril/HCTZ (Lisinopril-Hctz 10-12.5 Mg) 1 tab PO DAILY [facility] Last Admin: 01/27/18 08:46 Dose: 1 tab Sodium Chloride (Normal Saline) 1,000 mls @ 125 mls/hr IV STAT [facility] Last Admin: 01/25/18 03:44 Dose: 125 mls/hr Sodium Chloride (Normal Saline) 1,000 mls @ 125 mls/hr IV ASDIRECTED [facility] Last Admin: 01/25/18 03:44 Dose: 125 mls/hr Ibuprofen (Motrin) 400 mg PO Q6H PRN PRN Reason: Pain (mild 1-3) Insulin Aspart (Novolog) 0 unit SUBCUT TIDAC [facility]; Protocol Last Admin: 01/27/18 14:32 Dose: Not Given Insulin Glargine (Lantus Solostar) 10 units SUBCUT BEDTIME [facility] Last Admin: 01/24/18 21:08 Dose: 10 units Insulin Glargine (Lantus Solostar) 12 units SUBCUT BEDTIME [facility] Last Admin: 01/26/18 21:13 Dose: 12 units Labetalol HCl (Normodyne) 10 mg IVPUSH ONETIME PRN; Protocol PRN Reason: Hypertension Labetalol HCl (Normodyne) 10 mg IVPUSH ONETIME ONE; Protocol Stop: 01/24/18 17:42 Last Admin: 01/24/18 18:08 Dose: 10 mg Labetalol HCl (Normodyne) 10 mg IVPUSH Q4H PRN; Protocol PRN Reason: for SBP above 200 Last Admin: 01/26/18 08:54 Dose: 10 mg Sodium Chloride (Saline Flush) 10 ml FLUSH ASDIRECTED PRN PRN Reason: Keep Vein Open Sodium Chloride (Saline Flush) 2.5 ml FLUSH ASDIRECTED PRN PRN Reason: Keep Vein Open
== END 2018-01-27 13:00 | disposition home or self-care (01) | DRG 58 ==
LOC: MW.ED 08:35 → MW.MS 13:18 → OBSVTOIN 01-26 11:51 → MW.MS 01-26 14:39
PROVIDERS: ADMIT Internal Medicine; ATTEND Internal Medicine
DX: R20.2 Paresthesia of skin (principal); I10 Essential (primary) hypertension; E11.65 Type 2 diabetes mellitus with hyperglycemia; Z91.14 Patient's other noncompliance with medication regimen
CPT/HCPCS: 36415; 70450; 70450-26; 70553; 70553-26; 71045; 71045-26; 80048; 80053; 80061; 82962; 83036; 85025; 85610; 93005; 96360; 96361; 96374; 99283; 99285-25; A9270-GY; A9577; G0378; J1815-GY ×2; J3490; J7040

== ENCOUNTER 2021-05-20 18:34 | Emergency (ER) | payer BC ==
[2021-05-20] MEDS ORDERED: Tetracaine HCl/PF 0.5% 4 ML Bottle ONE (19:49)
--- NOTE | 2021-05-20 20:05 | EDM.PDOC ---
ED HPI GENERAL MEDICAL PROBLEM - General Chief Complaint: ENT Problem Stated Complaint: PAIN IN RT EYE, POSSIBLE INFECTION Time Seen by Provider: 05/20/21 18:59 - History of Present Illness INITIAL COMMENTS - FREE TEXT/NARRATIVE: CHIEF COMPLAINT(S): Eye pain HISTORY OF PRESENT ILLNESS: This is a 60-year-old woman with a past medical history of diabetes mellitus who comes to the emergency department with a chief complaint of eye pain. The patient states that for approximately 3 days now she has been experiencing eye pain. 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 She states that the pain is located on the right side of her face including behind her eye. She states that her pain is currently a 4 out of 10 but does increase to 8 out of 10 when the pain medication wears off. She denies any blurry vision, loss of vision, floaters. She states that she does wear contact lenses but she does change them daily. She denies any burning or irritation of her eyeball. She denies any fevers, chills or headache. She denies any skin changes but states that she does feel like her skin around her eye is swollen. She states that the pain is throbbing and is relieved by Tylenol and Motrin. She states that when the pain happens she does get a drainage from the right eye and thought it might be a retinal detachment. She states that she does not have any redness in her eye, purulent drainage. She denies any personal history of glaucoma but states she does have diabetes and her father may have had glaucoma. She denies any history of cluster headaches. She denies any seasonal allergies, runny nose, congestion, ear pain or dental pain. She denies any injury to her eye. REVIEW OF SYSTEMS: Constitutional: Denies fever, chills. Eyes: Positive for right eye pain. Denies blurry vision, loss of vision, floaters, redness, purulent drainage Ears, Nose, Mouth, & Throat: Denies earache, sore throat, dental pain Cardiovascular: Denies chest pain Respiratory: Denies shortness of breath Gastrointestinal: Denies Nausea, vomiting, diarrhea, hematochezia. Genitourinary: Denies hematuria Skin:Denies a rash MSK: Denies joint pain Neurological: Denies blurred vision, loss of vision, double vision, numbness, tingling, weakness, headache Psychiatric: Denies depression PAST MEDICAL HISTORY: As per history of present illness and as reviewed below otherwise noncontributory. SURGICAL HISTORY: As per history of present illness and as reviewed below otherwise noncontributory. SOCIAL HISTORY: As per history of present illness and as reviewed below otherwise noncontributory. FAMILY HISTORY: As per history of present illness and as reviewed below otherwise noncontributory. EXAMINATION OF ORGAN SYSTEMS/BODY AREAS: Constitutional: Blood pressure is 149/86, heart rate 94, respiratory rate 18 with an oxygen saturation 95% on room air. Temperature 36.9 General: Well-appearing woman who is in no acute distress. Psychiatric: Appropriate mood and affect. Eyes: No scleral icterus or conjunctival erythema visual acuity 20/25 in both eyes. No visual field defects. Pupils were equal round and reactive to light. Extraocular movements were intact. The patient reported pain in her right eye upon looking medially. No evidence of proptosis. No evidence of periorbital cellulitis. There is some slight ptosis of her right eyelid. No hyphema or hypopyon. No eyelid swelling or abnormality. No signs of entrapment. ENMT: Moist mucous membranes. No pharyngeal erythema tongue protrudes midline. No sinus tenderness to palpation. Bilateral nasal turbinates are clear without any evidence of drainage. cardiovascular: Regular, rate, and rhythm. No gallops, murmurs, or rubs. Bilateral upper extremity pulses symmetric and intact. No peripheral edema. No JVD. Temporal arteries not tender and there is no tenderness on the right side of the temporal area. Respiratory: Lungs clear to auscultation bilaterally. No wheezes, rales, or rhonchi. Gastrointestinal: Soft, non-tender, non-distended. Normoactive bowel sounds Genitourinary: No suprapubic tenderness Musculoskeletal: Normal range of motion. Skin: No lesions or abrasions. Neurological: Alert, GCS 15 strength and sensation grossly intact in upper and lower extremities bilaterally MEDICAL DECISION MAKING AND COURSE IN THE ED WITH INTERPRETATION/REVIEW OF DIAGNOSTIC STUDIES: This is a 60-year-old woman with a past medical history of diabetes mellitus who comes to the emergency department with 3 days of intermittent right eye pain with evidence of slight ptosis without any other dis cernible abnormality on examination. Patient has no evidence of infection. At this time I did discuss with the patient that I would like to do a fluorescein stain examination to evaluate for corneal abrasion even though her symptoms do not suggest a corneal abrasion. At this time I did discuss that given the ptosis and pain however she does not have any of the other clinical signs to suggest infection we can obtain a CT orbit to evaluate for cavernous sinus thrombosis which will also evaluate the orbits for infection. She was amenable to this plan. The patient states that her pain is currently well controlled therefore we will hold off. Laboratory: CBC is unremarkable. BMP is unremarkable. CRP is normal. There was some delay in obtaining CT orbit as there were multiple critical pa tients in the emergency department. Patient continued to remain stable. The radiological images were viewed by myself along with reading the report from the radiologist. CT orbit sella with contrast reveals no evidence for cavernous sinus thrombosis. The cavernous sinuses do appear patent with the orbital arteries symmetric and normal. Otherwise no abnormality. On reevaluation patient continued to remain stable. At this time I did discuss the results of the imaging with her. I did discuss with her that although we did obtain a CT is not 100% accurate however given no other findings on exam she is stable for discharge. I did discuss strict return precautions with the patient and recommended that she follow-up with primary care physician for which she has an appointment already scheduled. She was amenable to discharge at this time and had no further questions. DISPOSITION: The patient was discharged home in stable condition. The patient will follow up with her primary care physician in 3 to 5 days CONDITION: fair PROCEDURES: None FINAL IMPRESSION(S)/DIAGNOSES: 1. Acute right eye pain Rene Roach M.D. right eye Pain Score (Numeric/FACES): 4 - Related Data Allergies Allergy/AdvReac Type Severity Reaction Status Date / Time No Known Allergies Allergy Verified 05/20/21 18:57 Home Meds: Home Meds atorvaSTATin [Lipitor] 40 mg PO BEDTIME 30 Days #30 tablet 01/27/18 [Rx] Losartan Potassium 50 mg PO DAILY 05/20/21 [History] metFORMIN HCl [Metformin HCl ER] 500 mg PO DAILY 05/20/21 [History] Past Medical History - Past Health History Medical/Surgical History: Denies Medical/Surgical History Cardiovascular History: Reports: High Cholesterol, Hypertension GY[employer] MECH[employer]IC History: Reports: Other (See Below) Other [employer] ME[employer]IC History: Endocrine/Metabolic History: Reports: Diabetes, Type II - Infectious Disease History Infectious Disease History: Reports: Chicken Pox Social & Family History - Family History Family Medical History: No Pertinent Family History Oncologic: Reports: None - Tobacco Use Tobacco Use Status *Q: Former Tobacco User Used Tobacco, but Quit: Yes Month/Year Tobacco Last Used: 2007 - Caffeine Use Caffeine Use: Reports: None - Recreational Drug Use Recreational Drug Use: No ED ROS GENERAL - Review of Systems Review Of Systems: See Below ED EXAM, GENERAL - Physical Exam Exam: See Below Course - Vital Signs Last Recorded V/S: Last Vital Signs Temp 36.9 C 05/20/21 19:01 Pulse 87 05/21/21 00:23 Resp 17 05/21/21 00:23 BP 137/84 05/21/21 00:23 Pulse Ox 96 05/21/21 00:23 - Orders/Labs/Meds Labs: Laboratory Tests 05/20/21 05/20/21 05/20/21 Range/Units 19:56 19:56 19:56 WBC 8.49 (4.0-11.0) K/uL RBC 5.00 (4.30-5.90) M/uL Hgb 14.0 (12.0-16.0) g/dL Hct 42.3 (36.0-46.0) % MCV 84.6 (80.0-98.0) fL MCH 28.0 (27.0-32.0) pg MCHC 33.1 (31.0-37.0) g/dL RDW Std Deviation 40.8 (28.0-62.0) fl RDW Coeff of Teresa 13 (11.0-15.0) % Plt Count 253 (150-400) K/uL MPV 10.40 (7.40-12.00) fL Neut % (Auto) 66.3 (48.0-80.0) % Lymph % (Auto) 22.7 (16.0-40.0) % [place] % (Auto) 7.2 (0.0-15.0) % Eos % (Auto) 3.2 (0.0-7.0) % Baso % (Auto) 0.6 (0.0-1.5) % Neut # (Auto) 5.6 (1.4-5.7) K/uL Lymph # (Auto) 1.9 (0.6-2.4) K/uL [place] # (Auto) 0.6 (0.0-0.8) K/uL Eos # (Auto) 0.3 (0.0-0.7) K/uL Baso # (Auto) 0.1 (0.0-0.1) K/uL Nucleated RBC % 0.0 /100WBC Nucleated RBCs # 0 K/uL ESR 11 (0-29) mm/hr Sodium 141 (136-145) mmol/L Potassium 4.0 (3.5-5.1) mmol/L Chloride 104 (98-107) mmol/L Carbon Dioxide 28.0 (21.0-32.0) mmol/L BUN 23 H (7.0-18.0) mg/dL Creatinine 0.9 (0.6-1.0) mg/dL Est Cr Clr Drug Dosing 53.89 mL/min Estimated GFR (MDRD) > 60.0 ml/min Glucose 128 H (74-106) mg/dL Calcium 8.5 (8.5-10.1) mg/dL C-Reactive Protein 0.30 (0.00-0.90) mg/dL Meds: Medications Discontinued Medications Generic Name Dose Route Start Last Admin Trade Name Freq PRN Reason Stop Dose Admin Iopamidol 75 ml 05/20/21 20:29 Iopamidol 612 Mg/Ml 100 Ml Bottle IVPUSH 05/20/21 20:30 ONETIME STA Tetracaine HCl Confirm 05/20/21 19:49 05/20/21 21:55 Tetracaine Hcl/Pf 0.5% 4 Ml Bottle Administered 05/20/21 19:50 4 ml Dose Administration 4 ml .ROUTE .STK-MED ONE Departure - Departure Time of Disposition: 00:00 Disposition: Home, Self-Care 01 Condition: Fair Clinical Impression: Periorbital pain, Eye strain - Discharge Information *PRESCRIPTION DRUG MONITORING PROGRAM REVIEWED*: No *COPY OF PRESCRIPTION DRUG MONITORING REPORT IN PATIENT REMA: No Instructions: Eye Contusion Referrals: Shawn Ch MD [Primary Care Provider] - Forms: ED Department Discharge Additional Instructions: Your evaluated today on an emergent basis. At this time we did obtain an image of your orbits to evaluate for any abnormality including cavernous sinus thrombosis. As discussed sometimes CT is not 100% accurate however there was no evidence of cavernous sinus thrombosis today. Your visual acuity was normal with your glasses, your exam was normal otherwise. I do not believe there is an infection at this time. As discussed if you have any worsening symptoms such as redness or pus drainage coming out of your eye, redness of the skin surrounding your eye, worsening pain when you move your eye, you feel like your eye is popped out you feel like your eyelid is getting more droopy or you have any worsening symptoms that are concerning to you you are welcome to return to the emergency department. I recommend that you continue use Tylenol and Motrin and you can use the warm compresses as needed. Please keep your appointment with your primary care physician on Saturday. [facility] [address] [place] [address] [id number] [address] [id number] The patient is informed of any results of their evaluation and diagnostic workup and all questions are answered. They are given discharge instructions and return precautions. The patient is stable for discharge. The patient states they understand and agree with the plan and that they will return if their symptoms get worse or if they have any new concerns. The following information is given to patients seen in the emergency department who are being discharged to home. This information is to outline your options for follow-up care. We provide all patients seen in our emergency department with a follow-up referral. The need for follow-up, as well as the timing and circumstances, are variable depending upon the specifics of your emergency department visit. If you don't have a primary care physician on staff, we will provide you with a referral. We always advise you to contact your personal physician following an emergency department visit to inform them of the circumstance of the visit and for follow-up with them and/or the need for any referrals to a consulting specialist. The emergency department will also refer you to a specialist when appropriate. This referral assures that you have the opportunity for follow-up care with a specialist. All of these measure are taken in an effort to provide you with optimal care, which includes your follow-up. Under all circumstances we always encourage you to contact your private physician who remains a resource for coordinating your care. When calling for follow-up care, please make the office aware that this follow-up is from your recent emergency room visit. If for any reason you are refused follow-up, please contact the [facility] Emergency Department at and asked to speak to the emergency department charge nurse.
[2021-05-20 20:24] LABS: BLOOD UREA NITROGEN,BUN 23 mg/dL (7.0-18.0); CHLORIDE,CL 104 mmol/L (98-107); GLUCOSE RANDOM 128 mg/dL (74-106); SODIUM,NA 141 mmol/L (136-145)
[2021-05-20] MEDS ORDERED: Iopamidol 612 MG/ML 100 ML Bottle IVPUSH STA (20:29)
--- NOTE | 2021-05-20 23:33 | CT ---
INDICATION: Right eye pain, droop. Evaluate for sinus cavernous thrombosis. TECHNIQUE: IV contrast-enhanced CT face. 75 mL Isovue-370 injected. FINDINGS: The provided images were created with a high sharpness bone kernel which is not optimal for evaluation of the cavernous sinuses. However, the cavernous sinuses do appear patent. The orbital arteries are symmetric and appear normal. The globes are unremarkable. Extraocular muscles appear normal. No facial bone fractures. No sinus fluid. Visualized facial soft tissues are unremarkable. IMPRESSION: No evidence for cavernous sinus thrombosis. Please note that all CT scans at this facility use dose modulation, iterative reconstruction, and/or weight-based dosing when appropriate to reduce radiation dose to as low as reasonably achievable. Dictated by Clark Agarwal MD @ 05/20/2021 11:31:58 PM (Electronically Signed)
== END 2021-05-21 00:24 | disposition home or self-care (01) ==
LOC: MW.ED 18:34
DX: H53.10 Unspecified subjective visual disturbances (principal); E78.00 Pure hypercholesterolemia, unspecified; I10 Essential (primary) hypertension; E11.9 Type 2 diabetes mellitus without complications; Z87.891 Personal history of nicotine dependence; Z79.84 Long term (current) use of oral hypoglycemic drugs; Z79.899 Other long term (current) drug therapy
CPT/HCPCS: 36415; 70481; 70481-26; 80048; 85025; 85652; 86140; 99284-25

== ENCOUNTER 2021-06-13 16:14 | Emergency (ER) | payer BC ==
[2021-06-13] MEDS ORDERED: Sodium Chloride 0.9% 2.5 ML Syringe FLUSH PRN (18:29)
[2021-06-13] MEDS ORDERED: Sodium Chloride 0.9% 10 ML Syringe FLUSH PRN (18:29)
[2021-06-13 19:41] LABS: BLOOD UREA NITROGEN,BUN 20 mg/dL (7.0-18.0); CARBON DIOXIDE,CO2 25.9 mmol/L (21.0-32.0); CHLORIDE,CL 105 mmol/L (98-107); GLUCOSE RANDOM 105 mg/dL (74-106); POTASSIUM,K 4.1 mmol/L (3.5-5.1); SODIUM,NA 140 mmol/L (136-145)
[2021-06-13] MEDS ORDERED: Iopamidol 755 MG/ML 500 ML Multipack Bottle IVPUSH STA ×2 (21:40)
--- NOTE | 2021-06-13 22:44 | CT ---
DATE: 06/13/2021. 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 Rule out dissection. TECHNIQUE: Standard helical CT image acquisition through the head following the administration of intravenous contrast was performed. Multiplanar reconstructed images performed on a separate workstation. COMPARISON: None available. FINDINGS: The petrous, cavernous, and supraclinoid segments of the internal carotid arteries are within normal limits. The anterior and middle cerebral arteries are within normal limits. The intracranial vertebral arteries, basilar trunk, and posterior cerebral arteries are within normal limits. The major dural venous sinuses and deep venous system are patent. IMPRESSION: No intracranial proximal large vessel occlusion or flow limiting luminal stenosis. Please note that all CT scans at this facility use dose modulation, iterative reconstruction, and/or weight-based dosing when appropriate to reduce radiation dose to as low as reasonably achievable. Dictated by Christiano Schaffer MD @ 06/14/2021 9:20:19 AM (Electronically Signed)
--- NOTE | 2021-06-13 22:46 | CT ---
DATE: 06/13/2021. CLINICAL HISTORY: Concern for right-sided Tosin syndrome. Rule out dissection. TECHNIQUE: Standard helical CT image acquisition through the neck was performed after intravenous contrast bolus enhancement. Multiplanar reconstructed images were performed and interpreted. COMPARISON: None available. FINDINGS: The origins of the great vessels from the aortic arch are patent. The origins of the right and left vertebral arteries are patent. The common carotid arteries are patent. No significant luminal stenoses of the proximal internal carotid arteries by NASCET criteria. The more distal cervical segments of the internal carotid arteries are patent. The cervical segments of the vertebral arteries are patent. The visualized lung apices are unremarkable. The thyroid gland is unremarkable. There are mild scattered degenerative changes in the cervical spine. IMPRESSION: Patent cervical arterial vasculature without hemodynamically significant luminal stenosis. No evidence of flow-limiting arterial dissection. Please note that all CT scans at this facility use dose modulation, iterative reconstruction, and/or weight-based dosing when appropriate to reduce radiation dose to as low as reasonably achievable. Dictated by Christiano Schaffer MD @ 06/14/2021 9:21:42 AM (Electronically Signed)
--- NOTE | 2021-06-13 22:55 | CT ---
Indication: Right-sided eye pain and ptosis, possible Tosin syndrome, concern for dissection Technique: Nonenhanced CT imaging through the chest, followed by contrast enhanced imaging acquired in the angiographic phase of enhancement. 75 mL Isovue 370 contrast agent was administered. Sagittal and coronal reconstructions are provided. Comparison: None Findings: The thoracic aorta is normal in caliber. Motion artifact slightly limits assessment of the aortic root. There is no evidence of aortic dissection. The great arch branch vessel origins are patent. The main pulmonary artery is nondilated. The heart is nonenlarged. There is no pericardial effusion. There is no mediastinal lymphadenopathy. The lungs are clear. There is no pleural effusion or pneumothorax. Several stones are noted in the gallbladder lumen. Remainder of the visualized upper abdomen is unremarkable. The thoracic osseous structures are unremarkable. Impression: 1. No evidence of aortic dissection or other acute intrathoracic process. 2. Cholelithiasis. Please note that all CT scans at this facility use dose modulation, iterative reconstruction, and/or weight-based dosing when appropriate to reduce radiation dose to as low as reasonably achievable. Dictated by Glenna Jimenez MD @ 06/13/2021 10:53:51 PM (Electronically Signed)
--- NOTE | 2021-06-13 22:59 | EDM.PDOC ---
ED HPI GENERAL MEDICAL PROBLEM - General Chief Complaint: ENT Problem Stated Complaint: DR BECERRA REFERRAL FOR TESTS Time Seen by Provider: 06/13/21 19:15 - History of Present Illness INITIAL COMMENTS - FREE TEXT/NARRATIVE: CHIEF COMPLAINT(S): "Sent in for MRI." HISTORY OF PRESENT ILLNESS: This is a 60-year-old woman with a past medical history of diabetes mellitus, hypertension and hyperlipidemia with an emergency department visit approximately 1 month ago for right eye pain who comes to the emergency department with a chief complaint of "sent in for MRI." The patient states that she followed up with her primary care physician and her prenatal nurse who stated that her vision had not changed and had a normal exam. They then referred the patient to Dr. Becerra an bicycle taxi driver who also did an evaluation and did not find any abnormalities but was concerned about possible Tosin syndrome and recommended she come to the emergency department for an MRI to look for a mass in her chest. She recommended an MRI of the brain, neck and chest. The patient states that she has had similar symptoms for this entire time including intermittent right eye pain, swelling of her upper eyelid. She denies any diplopia, numbness, tingling, weakness, vision loss, vision changes. She denies any dental pain, sinus congestion. She states that there is intermittent draining from the right eye which is clear. She denies any tinnitus, earache or other abnormality. REVIEW OF SYSTEMS: Constitutional: Denies fever, chills. Eyes: Denies eye pain Ears, Nose, Mouth, & Throat: Denies earache Cardiovascular: Denies chest pain Respiratory: Denies shortness of breath Gastrointestinal: Denies Nausea, vomiting, diarrhea, hematochezia. Genitourinary: Denies hematuria Skin:Denies a rash MSK: Denies joint pain Neurological: Positive for right eye pain. Denies blurred vision, double vision, numbness, tingling, weakness psychiatric: Denies depression PAST MEDICAL HISTORY: As per history of present illness and as reviewed below otherwise noncontributory. SURGICAL HISTORY: As per history of present illness and as reviewed below otherwise noncontributory. SOCIAL HISTORY: As per history of present illness and as reviewed below otherwise noncontributory. FAMILY HISTORY: As per history of present illness and as reviewed below otherwise noncontributory. EXAMINATION OF ORGAN SYSTEMS/BODY AREAS: Constitutional: Blood pressure is 135/83, heart rate 95, respiratory rate 20 with an oxygen saturation 96% on room air. Temperature 35.8 temporal General: Well-appearing woman who is in no acute distress Psychiatric: Appropriate mood and affect. Eyes: No scleral icterus or conjunctival erythema pupils were 2 mm and reactive bilaterally. Extraocular movements intact. No vertical or horizontal nystagmus. There is no proptosis or ptosis. Visual acuity is 20/25 in both eyes in isolation. 20/20 with out any isolation. No visual field defects. ENMT: Moist mucous membranes. No pharyngeal erythema no dental caries or gum erythema. Bilateral tympanic membranes without any bulging or erythema. No drooling, trismus, stridor. No carotid bruits. No thyromegaly. Cardiovascular: Regular, rate, and rhythm. No gallops, murmurs, or rubs. Bilateral upper extremity pulses symmetric and intact. No peripheral edema. No JVD. Respiratory: Lungs clear to auscultation bilaterally. No wheezes, rales, or rhonchi. Gastrointestinal: Soft, non-tender, non-distended. Normoactive bowel sounds Genitourinary: No suprapubic tenderness Musculoskeletal: Normal range of motion. Skin: No lesions or abrasions. Neurological: AOx4. CN grossly intact. Stregth 5/5 in bilateral upper and lower extremity. Sensation is intact bilaterally in upper and lower extremity. Gait appears normal. MEDICAL DECISION MAKING AND COURSE IN THE ED WITH INTERPRETATION/REVIEW OF DIAGNOSTIC STUDIES: This is a 60-year-old man with a past medical history of diabetes mellitus, hyperlipidemia, hypertension who comes to the emergency department with similar symptoms as 1 month ago who was evaluated outpatient and found to have normal eye examination who was sent in for MRI to evaluate for mass lesion. At this time the patient's neurological exam is entirely normal. Given the duration of her symptoms I do not believe this is a emergent condition however we will obtain CTA of the head, neck, and thorax to evaluate for any possibility of compression from a malignancy or mass. This will also evaluate for dissection. I did discuss with her at this time that I do not believe emergent MRI is indicated. I discussed that at this time that we do not have MRI capability given the time of day. I did discuss depending on what we find we may transfer or schedule her for outpatient MRI. She was amenable to this plan. The patient is currently asymptomatic Laboratory: CBC is unremarkable. CMP is unremarkable. The radiological images were viewed by myself along with reading the report from the radiologist. CTA of the chest does not reveal any acute intrathoracic process. There is cholelithiasis. CTA of the neck does not reveal any stenosis occlusion or evidence of dissection. CTA of the head does not reveal any stenosis or occlusion. After imaging the patient continued to remain asymptomatic. At this time I did discuss with patient that her imaging is normal. At this time given the duration of her symptoms I did recommend that we obtain an outpatient MRI. We did fill out the paperwork and she was amenable to this plan. She is to return for any new or worsening symptoms. She was amenable discharge and had no further questions. DISPOSITION: The patient was discharged home in stable condition. The patient will follow up with primary care physician in 3 to 5 days CONDITION: Fair PROCEDURES: None FINAL IMPRESSION(S)/DIAGNOSES: 1. Subacute right eye pain and ptosis Rene Roach M.D. 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: Endocrine/Metabolic History: Reports: Diabetes, Type II - Infectious Disease History Infectious Disease History: Reports: Chicken Pox Social & Family History - Family History Family Medical History: No Pertinent Family History Oncologic: Reports: None - Tobacco Use Second Hand Smoke Exposure: No - Caffeine Use Caffeine Use: Reports: None - Recreational Drug Use Recreational Drug Use: No ED ROS GENERAL - Review of Systems Review Of Systems: See Below ED EXAM, GENERAL - Physical Exam Exam: See Below Course - Vital Signs Last Recorded V/S: Last Vital Signs Temp 36.1 C 06/14/21 00:00 Pulse 82 06/14/21 00:00 Resp 16 06/14/21 00:00 BP 124/80 06/14/21 00:00 Pulse Ox 97 06/14/21 00:00 - Orders/Labs/Meds Orders: Active Orders 24 hr Category Date Time Status Saline Lock Insert [OM.PC] Stat Oth 06/13/21 18:29 Ordered Labs: Laboratory Tests 06/13/21 06/13/21 Range/Units 19:11 19:11 WBC 8.92 (4.0-11.0) K/uL RBC 4.79 (4.30-5.90) M/uL Hgb 13.8 (12.0-16.0) g/dL Hct 41.1 (36.0-46.0) % MCV 85.8 (80.0-98.0) fL MCH 28.8 (27.0-32.0) pg MCHC 33.6 (31.0-37.0) g/dL RDW Std Deviation 42.1 (28.0-62.0) fl RDW Coeff of Teresa 14 (11.0-15.0) % Plt Count 278 (150-400) K/uL MPV 10.20 (7.40-12.00) fL Neut % (Auto) 70.3 (48.0-80.0) % Lymph % (Auto) 20.3 (16.0-40.0) % [place] % (Auto) 5.6 (0.0-15.0) % Eos % (Auto) 3.4 (0.0-7.0) % Baso % (Auto) 0.4 (0.0-1.5) % Neut # (Auto) 6.3 H (1.4-5.7) K/uL Lymph # (Auto) 1.8 (0.6-2.4) K/uL [place] # (Auto) 0.5 (0.0-0.8) K/uL Eos # (Auto) 0.3 (0.0-0.7) K/uL Baso # (Auto) 0.0 (0.0-0.1) K/uL Nucleated RBC % 0.0 /100WBC Nucleated RBCs # 0 K/uL Sodium 140 (136-145) mmol/L Potassium 4.1 (3.5-5.1) mmol/L Chloride 105 (98-107) mmol/L Carbon Dioxide 25.9 (21.0-32.0) mmol/L BUN 20 H (7.0-18.0) mg/dL Creatinine 0.8 (0.6-1.0) mg/dL Est Cr Clr Drug Dosing 60.62 mL/min Estimated GFR (MDRD) > 60.0 ml/min Glucose 105 (74-106) mg/dL Calcium 9.2 (8.5-10.1) mg/dL Total Bilirubin 0.4 (0.2-1.0) mg/dL AST 22 (15-37) IU/L ALT 35 (14-63) IU/L Alkaline Phosphatase 110 (46-116) U/L Total Protein 7.6 (6.4-8.2) g/dL Albumin 3.6 (3.4-5.0) g/dL Globulin 4.0 (2.6-4.0) g/dL Albumin/Globulin Ratio 0.9 (0.9-1.6) Meds: Medications Discontinued Medications Generic Name Dose Route Start Last Admin Trade Name Freq PRN Reason Stop Dose Admin Iopamidol 100 ml 06/13/21 21:40 06/13/21 21:41 Iopamidol 755 Mg/Ml 500 Ml Multipack Bottle IVPUSH 06/13/21 21:41 100 ml ONETIME STA Administration Iopamidol 75 ml 06/13/21 21:40 06/13/21 21:41 Iopamidol 755 Mg/Ml 500 Ml Multipack Bottle IVPUSH 06/13/21 21:41 75 ml ONETIME STA Administration Sodium Chloride 10 ml 06/13/21 18:29 06/13/21 21:54 Sodium Chloride 0.9% 10 Ml Syringe FLUSH 10 ml ASDIRECTED PRN Administration Keep Vein Open Sodium Chloride 2.5 ml 06/13/21 18:29 06/13/21 21:54 Sodium Chloride 0.9% 2.5 Ml Syringe FLUSH 2.5 ml ASDIRECTED PRN Administration Keep Vein Open Departure - Departure Time of Disposition: 23:51 Disposition: Home, Self-Care 01 Condition: Fair Clinical Impression: Ptosis - Discharge Information *PRESCRIPTION DRUG MONITORING PROGRAM REVIEWED*: No *COPY OF PRESCRIPTION DRUG MONITORING REPORT IN PATIENT REMA: No Instructions: Medical Screening Exam Referrals: Shawn Ch MD [Primary Care Provider] - Forms: ED Department Discharge Additional Instructions: You were evaluated today on an emergent basis. At this time as discussed your CTs of the head, neck and chest were all normal. There was not any evidence of any masses, dissection or other abnormality. As discussed we do not have MRI capability at this time however we did fill out paperwork for outpatient MRI. We will see if you can get this tomorrow if not he will be scheduled for an MRI. If needed sooner please return to the emergency department or contact your primary care physician. If you have any worsening of your symptoms such as trouble speaking, loss of vision, double vision, weakness I would like you to return to the emergency department. [facility] [address] [place] [id number] [facility] [address] [place] [id number] The patient is informed of any results of their evaluation and diagnostic workup and all questions are answered. They are given discharge instructions and return precautions. The patient is stable for discharge. The patient states they understand and agree with the plan and that they will return if their symptoms get worse or if they have any new concerns. The following information is given to patients seen in the emergency department who are being discharged to home. This information is to outline your options for follow-up care. We provide all patients seen in our emergency department with a follow-up referral. The need for follow-up, as well as the timing and circumstances, are variable depending upon the specifics of your emergency department visit. If you don't have a primary care physician on staff, we will provide you with a referral. We always advise you to contact your personal physician following an emergency department visit to inform them of the circumstance of the visit and for follow-up with them and/or the need for any referrals to a consulting specialist. The emergency department will also refer you to a specialist when appropriate. This referral assures that you have the opportunity for follow-up care with a specialist. All of these measure are taken in an effort to provide you with optimal care, which includes your follow-up. Under all circumstances we always encourage you to contact your private physician who remains a resource for coordinating your care. When calling for follow-up care, please make the office aware that this follow-up is from your recent emergency room visit. If for any reason you are refused follow-up, please contact the [facility] Emergency Department at and asked to speak to the emergency department charge nurse. Sepsis Event Note (ED) - Evaluation Sepsis Screening Result: No Definite Risk - Focused Exam Vital Signs: Vital Signs Temp Pulse Resp BP Pulse Ox 06/14/21 00:00 36.1 C 82 16 124/80 97 06/13/21 22:00 86 16 130/84 97
== END 2021-06-14 | disposition home or self-care (01) ==
LOC: MW.ED 16:14
DX: H02.401 Unspecified ptosis of right eyelid (principal); H57.11 Ocular pain, right eye; E78.00 Pure hypercholesterolemia, unspecified; I10 Essential (primary) hypertension; E11.9 Type 2 diabetes mellitus without complications; Z79.84 Long term (current) use of oral hypoglycemic drugs; Z79.899 Other long term (current) drug therapy
CPT/HCPCS: 36415; 70496; 70498; 71275; 80053; 85025; 99284; Q9967

== ENCOUNTER 2022-08-03 07:28 | Day surgery (SDC) | payer BC ==
[~2022-08-03 07:28] MED LIST: Lactated Ringers 1,000 ML IV SCH; Sodium Chloride 0.9% 10 ML Syringe FLUSH PRN; Sodium Chloride 0.9% 2.5 ML Syringe FLUSH PRN; Sodium Chloride 0.9% 20 ML SDV IV PRN
[2022-08-03] MEDS ORDERED: Propofol 200 MG/20 ML SDV ONE (09:24)
[2022-08-03] MEDS ORDERED: Lidocaine 2% 5 ML SDV ONE (09:47)
== END 2022-08-03 10:50 | disposition home or self-care (01) ==
LOC: MW.SDS 07:28
PROVIDERS: ATTEND Surgery
PROC: 0DBN8ZX Excision of Sigmoid Colon, Via Natural or Artificial Opening Endoscopic, Diagnostic (ICD-10-PCS; principal; 2022-08-03)
PROC: 0DBL8ZX Excision of Transverse Colon, Via Natural or Artificial Opening Endoscopic, Diagnostic (ICD-10-PCS; 2022-08-03)
DX: Z12.11 Encounter for screening for malignant neoplasm of colon (principal); D12.5 Benign neoplasm of sigmoid colon; D12.3 Benign neoplasm of transverse colon; K57.90 Diverticulosis of intestine, part unspecified, without perforation or abscess without bleeding; Z87.891 Personal history of nicotine dependence; Z79.899 Other long term (current) drug therapy
CPT/HCPCS: 45380; J2704; J7120; 00812

== ENCOUNTER 2025-02-23 06:30 | Day surgery (SDC) | payer BC ==
[~2025-02-23 06:30] MED LIST changes: -Lactated Ringers 1,000 ML IV SCH; -Sodium Chloride 0.9% 20 ML SDV IV PRN
[2025-02-23] MEDS: Lactated Ringers 1,000 ML IV SCH (06:55)
[2025-02-23] MEDS ORDERED: Midazolam 1 MG/ML 2 ML SDV ONE (07:04)
[2025-02-23] MEDS ORDERED: fentaNYL 100 MCG/2 ML SDV ONE (07:04)
[2025-02-23] MEDS ORDERED: Propofol 200 MG/20 ML SDV ONE (07:04)
[2025-02-23] MEDS ORDERED: Albuterol 0.083% 2.5 MG/3 ML Neb Soln NEB PRN (07:25)
[2025-02-23] MEDS ORDERED: fentaNYL 50 MCG/ML SDV IVPUSH PRN (07:25)
[2025-02-23] MEDS ORDERED: Ondansetron 4 MG/2 ML SDV IVPUSH PRN (07:25)
[2025-02-23] MEDS ORDERED: Naloxone 0.4 MG/ML SDV IVPUSH PRN (07:25)
[2025-02-23] MEDS ORDERED: Ondansetron 4 MG/2 ML SDV ONE (08:32)
[2025-02-23] MEDS ORDERED: Dexamethasone 4 MG/ML 5 ML MDV ONE (08:32)
[2025-02-23] MEDS ORDERED: ePHEDrine 50 MG/ML SDV ONE (08:40)
[2025-02-23] MEDS ORDERED: ceFAZolin 2 GM in Water For Injection, Sterile 20 ML IVPUSH ONE (08:54)
== END 2025-02-23 10:00 | disposition home or self-care (01) ==
LOC: MW.SDS 06:30
PROVIDERS: ATTEND Surgery
DX: C54.1 Malignant neoplasm of endometrium (principal); E78.00 Pure hypercholesterolemia, unspecified; I10 Essential (primary) hypertension; E11.9 Type 2 diabetes mellitus without complications; E66.9 Obesity, unspecified; Z79.84 Long term (current) use of oral hypoglycemic drugs; Z79.899 Other long term (current) drug therapy; Z87.891 Personal history of nicotine dependence; Z68.36 Body mass index [BMI] 36.0-36.9, adult
CPT/HCPCS: 36561; 71045; 76000; C1788; J0665; J0690; J1100; J1642; J2003; J2250; J2371; J2405; J2704; J3010; J7120; 00532; J3490